=== PATIENT | female | born 1925 | race Caucasian/White ===

== ENCOUNTER 2017-02-05 08:02 | Inpatient (IN) | payer MEDICARE ==
--- NOTE | 2017-02-05 09:02 | CT ---
CT BRAIN WITHOUT CONTRAST: Date: 02/05/17 HISTORY: Emergency exam. Trauma. Fall last night. Altered mental status. Confusion. COMPARISON: None. FINDINGS: Moderate atrophy. There is a right temporal parenchymal hemorrhage with small subarachnoid component . No midline shift or mass effect. Mild microangiopathic changes. There are hypodensities of the external capsules, likely chronic in n ature. The calvarium is intact. Paranasal sinuses and mastoids are clear. There appears to be a possible soft tissue thickening or contusion of the left frontal superficial s oft tissues. IMPRESSION: Small right temporal intraparenchymal hemorrhage with small subarachnoid component. Please see CT cervical spine for further findings. CODE: CR. ER physician notified of findings at time of dictation. POS: [facility]
[2017-02-05] MEDS ORDERED: Lorazepam 2 MG/ML VIAL ONE (09:05)
[2017-02-05 09:07] LABS: ALT (SGPT) 23 U/L (8-55); AST (SGOT) 33 U/L (5-34); Alkaline Phosphatase 73 U/L (40-150); Anion Gap 10 mmol/L (10-20); BUN (Urea Nitrogen) 14 mg/dL (9.8-20.1); Bilirubin, Total 1.6 mg/dL (0.2-1.2); Calc. Creatinine Clearance 0 mL/min (70-130); Calcium 9.9 mg/dL (7.8-10.44); Carbon Dioxide 26 mmol/L (23-31); Chloride 107 mmol/L (98-107); Estimated GFR-MDRD 31; Globulin 2.5 g/dL (2.4-3.5); Protein, Total 6.5 g/dL (6.0-8.3)
[2017-02-05 09:09] LABS: PTT 37.3 SEC (22.9-36.1); Prothrombin Time 24.6 SEC (12.0-14.7)
[2017-02-05] MEDS ORDERED: Lidocaine 1% w/Epinephrine 1:200K 30 ML VIAL ONE (09:12)
--- NOTE | 2017-02-05 09:14 | CT ---
CT FACE WITHOUT CONTRAST: Date 02/05/17 HISTORY: Fall last night. COMPARISON: None. FINDINGS/IMPRESSION: There is small right temporal lobe, intraparenchymal, and subarachnoid hemorrhage. No mass effect. Face appears to be intact. There is a fracture of the right anterior arch of C1 anterior to the hughes sverse foramen. Dense calcifications of the transverse segment of the dens. The medial orbital purvis, lateral orbital purvis, orbital roofs, and orbital floors are intact. Mandibles are intact. Mandibular condyles are intact. The nasal bones are intact. The osseous nasal septum and vomer are intact. Zygoma and zygomatic arch are intact. Pterygoid plates are intact. There are calcifications of the carotid bulbs. Emergency room notified of findings via telephone at 0855 hours. CODE CR. POS: [facility]
[2017-02-05 09:24] LABS: #Basophils 0.1 thou/uL (0.0-0.2); #Eosinphils 0.1 thou/uL (0.0-0.7); #Monocytes 0.7 thou/uL (0.11-0.59); #Neutrophils 5.4 thou/uL (1.40-6.50); %Basophils 0.8 % (0.0-1.0); %Eosinophils 0.7 % (0.0-10.0); %Lymphocytes 13.8 % (21.0-51.0); %Monocytes 9.6 % (0.0-10.0); Hematocrit 38.7 % (36.0-47.0); Red Blood Cell (RBC) Count 3.94 mill/uL (4.20-5.40); White Blood Cell (WBC) Count 7.2 thou/uL (4.8-10.8)
--- NOTE | 2017-02-05 09:31 | CT ---
CT CERVICAL SPINE WITHOUT CONTRAST: Date: 02/05/17 HISTORY: Patient fell yesterday. Patient is altered and confused. COMPARISON: None. TECHNIQUE: Cervical spine CT is performed without contrast. Reformatted images are submitted for interpretation . FINDINGS: Visualized soft tissue neck structures are unremarkable. There is atherosclerosis of the carotid art eries. Upper mediastinum and lung apices are unremarkable. There are varying degrees of central canal stenosis and foraminal narrowing on the basis of degenera tive change. There is a nondisplaced fracture involving the anterior right C1 ring. Fracture lucency is also note d in the right lateral mass at C2. Possibility of a nondisplaced fracture is raised. Remaining cervi marek spine vertebral bodies are unremarkable for acute fracture. Remote mild compression fracture at T1 and minimal remote compression fracture at T2. IMPRESSION: 1. Anterior right C1 fracture. 2. Possible nondisplaced fracture involving the right lateral mass at C2. POS: [facility]
--- NOTE | 2017-02-05 10:05 | RAD ---
RADIOGRAPH LEFT SHOULDER THREE VIEWS: History: 89-year-old female with acute traumatic left shoulder pain after fall. FINDINGS: Diffuse osteopenia. No fracture or dislocation identified. No high grade degenerative changes. There is cardiomegaly and prominent interstitial markings diffusely, incompletely imaged. IMPRESSION: 1. Osteopenia. 2. No other abnormality of the left shoulder identified. 3. Cardiomegaly. POS: [facility]
[2017-02-05] MEDS ORDERED: Acetaminophen 1,000 MG in Premix Bag 1 BAG IVPB SCH (10:30)
[2017-02-05] MEDS ORDERED: Phytonadione 10 MG/ML AMP SLOW IVP SCH (10:45)
[2017-02-05] MEDS ORDERED: Ondansetron HCl/PF 4 MG/2 ML Vial IVP PRN (11:14)
[2017-02-05] MEDS ORDERED: Dextrose 50% Abboject 50 ML SYRINGE SLOW IVP PRN (11:14)
[2017-02-05] MEDS ORDERED: Dextrose 5% in Water 1,000 ML IV PRN (11:14)
[2017-02-05 11:24] LABS: Bilirubin Negative (Negative); Blood, Urine Negative (Negative); Glucose, Urine (Dipstick) Negative (Negative); Ketone, Urine Negative (Negative); Nitrite Negative (Negative); Protein, Urine (Dipstick) Negative (Neg-Trace)
[2017-02-05] MEDS ORDERED: Phytonadione 10 MG/ML AMP ONE (11:29)
[2017-02-05] MEDS ORDERED: Ondansetron HCl/PF 4 MG/2 ML Vial ONE (11:45)
--- NOTE | 2017-02-05 13:32 | HP-2 ---
DATE OF ADMISSION: 02/05/2017 LOCATION OF ADMISSION: [facility]. CHIEF COMPLAINT: Mechanical fall, falling to the head and injury to the neck. HISTORY OF PRESENT ILLNESS: This is an 89-year-old female that presents to the ER after a mechanical fall, falling and hitting her left side of her head. Per talking with patient's letty garcia, the patient has been staying with the patient's daughter. Daughter reports that the patient has episodes of sundowning that the patient was trying to argue with daughter about medications and annalisa ent got combative. At that time, she started to take a few steps back and fell and hit her head on some furniture per daughter. The patient denies any like loss of consciousness, dizziness, or sympt oms beforehand. Patient reports not being able to remember anything about the fall or before the fa ll. From the patient's daughter, daughter does report that the patient does have some underlying de mentia for about the last year. Says that it has been undiagnosed, but that the patient does have e pisodes of sundowning and is forgetful and is one of the reasons she is currently staying with the [facility]. The patient denies any chest pain or shortness of breath. Denies any abdominal pain. The patient does report just having a headache and having some pain in her neck. PAST MEDICAL HISTORY: Positive for CHF, atrial fibrillation, and hypothyroidism. PAST SURGICAL HISTORY: She has had some breast nodules removed long long time ago. DRUG ALLERGIES: PENICILLIN, unknown reaction. MEDICATIONS: 1. She takes Multaq 400 mg 2 times a day. 2. She takes metoprolol 25 mg tabs, but cuts them into half, so metoprolol 12.5 mg 2 times a daily. 3. Levothyroxine 75 mcg. 4. Then she takes warfarin 5 mg 1 time a day except for on Wednesdays she takes one and a half dose s. 5. Furosemide 20 mg. FAMILY HISTORY: Insignificant. SOCIAL HISTORY: Not currently smoker. No alcohol use and no illicit drug use. REVIEW OF SYSTEMS: All review of systems not listed in the HPI are, otherwise, negative at this anu e. PHYSICAL EXAMINATION: VITAL SIGNS: Blood pressure is 138/83, pulse of 96, respiratory rate is 18, and oxygen is 98% on ro om air and temperature is 98.0. GENERAL: The patient is alert and oriented. Patient does have some trauma to her head. Does have a laceration above her left eye, which is repaired with suture. She does have some bruising noted t o the left side of her head as well. The patient is flat with a C-collar in place currently. HEENT: Sclerae, no redness. PERRLA. NECK: Supple, no thyromegaly, no bruits noted. CARDIOVASCULAR: Regular rate and rhythm. Patient was moaning, possible murmur hard to discern at t his time. RESPIRATORY: Symmetric chest expansion and unlabored breathing. LUNGS: Clear to auscultation in all lobes. No wheezes or crackles noted. ABDOMEN: Soft, no masses or distention. She is mildly tender to palpation in the left upper and le ft lower quadrant area. No rebound tenderness noted. EXTREMITIES: She is able to move upper extremities and lower extremities bilaterally. Strength is normal, 5/5 in upper and lower extremities. No edema noted at this time. There is a bruising over her left shoulder. NEUROVASCULAR: No focal neuro deficit noted at this time. SKIN: Intact. She does have some multiple ecchymoses. Does have the laceration above her left eye . LABORATORY DATA: White blood cell count of 7.2, hemoglobin 12.7, hematocrit 38.7, MCV 98.1, platele t count is 116. PT was 24.6, INR was 2.1, aPTT was 37.3. Sodium was 140, potassium was 3.3, chlori de was 107, carbon dioxide was 26, BUN was 14, creatinine was 1.58, calcium was 9.9, total bilirubin was 1.6, glucose 93, AST 33, ALT 23, alkaline phosphatase 73, serum total protein 6.5, albumin is 4 .0. UA was negative. No abnormal color. IMAGING: A facial bone CT showed there is a small right temporal lobe intraparenchymal and subarach noid hemorrhage, no mass effect. Face appears to be intact. There is a fracture of the right anter ior arch of C1 anterior to the transverse foramen and then there was also calcification noted in the carotid bulbs. There were no other osseous abnormalities noted. Brain CT showed small right temporal intraparenchymal hemorrhage with small subarachnoid component. Cervical spine CT showed, 1. Anterior right C1 fracture. 2. Possible nondisplaced fracture, involving right lateral mass at C2. The shoulder x-ray of the left shoulder showed, 1. Osteopenia. 2. No other abnormality of the left shoulder identified. 3. Cardiomegaly. ASSESSMENT: 1. Status post mechanical fall. 2. Fracture of C1 and possible C2. 3. Subarachnoid hemorrhage with right temporal intraparenchymal hemorrhage with small subarachnoid component. 4. History of congestive heart failure. 5. History of atrial fibrillation. 6. Possible underlying dementia. PLAN: We will consult Neurosurgery for assessment of the C-spine fracture and brain bleed. We will continue to monitor patient. We will admit her to the [facility] for hourly neuro checks due to the brai n bleed. We will stop her warfarin for now, as she was on warfarin and was in the subtherapeutic ra nge. We will reverse the warfarin effect with vitamin K only at this time. We will keep patient in a C-collar and await records from Neurosurgery. We will consult PT and OT and case management. We will want to restart her home meds, as she has the CHF and atrial fibrillation and continue to quinten tor vital signs as needed. We will hold warfarin for now due to brain bleed. We will continue to monitor vital signs. We will recheck labs. Her potassium was a little low. We will replace potassium as needed. She possibly has an acute kidney injury. Creatinine is 1.58; do es not know her baseline for now. May need some fluids. Daughter is going to get records from prev ious hospitalizations at outside hospital and get a previous echocardiogram report from her previous [facility] and bring those to us. We will await records. Patient was seen and assessed with Dr. Mayo, plan of care was discussed with Dr. Mayo.
[2017-02-05 13:33] VITALS: BMI 22.6
[2017-02-05] MEDS: traMADol HCl 50 MG TAB PO PRN ×2 (16:03→22:25)
[2017-02-05] MEDS: Acetaminophen 500 MG TAB PO PRN (21:15)
--- NOTE | 2017-02-05 23:17 | CON ---
DATE OF CONSULTATION: 02/05/2017 HISTORY OF PRESENT ILLNESS: Ms. Briseno is an 89-year-old woman who is admitted to [facility] in [facility] ICU after sustaining a fall early this morning, struck her head on some furniture. She suffered a lateral mass fracture to the right at C1 that is minimally displaced and then has some minimal sub arachnoid hemorrhage in the right frontal and temporal lobes with minimal mass effect. It is rather small amount of blood. To my knowledge, she does not take any blood thinners. For this reason, Ne urosurgery was counseled at bedside. The patient is emotional and upset citing the trauma from this morning, but otherwise she is neurologically intact and stable. She is oriented to name, place, an d situation. She has good motion and strength in the upper and lower extremities bilaterally. She does not have any sensory disturbance that I can discern. Pupils are equally round and reactive to light. Extraocular movements are intact. Her speech is unimpaired. At this point I think it is mo st appropriate that management for her neck fracture is nonsurgical with only a [place] collar to we ar at all times, but also need to provide her a [place] collar to wear during shower times. Th en follow up with her a 2 week basis to monitor the progress of healing in terms of her subarachnoid hemorrhage. Again, nonsurgical management is recommended, just hold blood thinning medications to include NSAIDs and aspirin and we will repeat a CT scan of the head in roughly 3-4 weeks to ensure t hat this has resolved, at which point she can return to taking blood thinning medication, otherwise management will be minimal. Neurosurgery will continue to follow. Wellington Bustos PA-C, dictating for Rik Ibrahim M.D.
[2017-02-06 05:08] LABS: Anion Gap 9 mmol/L (10-20); BUN (Urea Nitrogen) 12 mg/dL (9.8-20.1); Calc. Creatinine Clearance 31 mL/min (70-130); Carbon Dioxide 25 mmol/L (23-31); Chloride 109 mmol/L (98-107); Estimated GFR-MDRD 45
[2017-02-06] MEDS ORDERED: Levothyroxine Sodium 75 MCG TAB PO SCH (07:30)
[2017-02-06] MEDS: Dronedarone HCl 400 MG TAB PO SCH ×2 (08:08→17:32)
[2017-02-06] MEDS: Furosemide 20 MG TAB PO SCH (08:09)
[2017-02-06] MEDS ORDERED: FLU VACC TS2017-18 (>65YR) 0.5 ML SYRINGE IM ONE ×2 (09:00→10:15)
[2017-02-06 09:01] LABS: Magnesium 1.9 mg/dL (1.6-2.6); Phosphorus 2.8 mg/dL (2.3-4.7)
[2017-02-06] MEDS: traMADol HCl 50 MG TAB PO PRN ×2 (09:56→21:49)
[2017-02-06] MEDS: Metoprolol Tartrate 25 MG TAB PO SCH (10:00)
[2017-02-06] MEDS: Levothyroxine Sodium 75 MCG TAB PO SCH (10:15)
[2017-02-06] MEDS ORDERED: Potassium Chloride 40 MEQ, Magnesium Sulfate 2 GM in Sodium Chloride 0.9% 250 ML 250 ML IVPB SCH (10:15)
--- NOTE | 2017-02-06 10:54 | CT ---
CT BRAIN WITHOUT CONTRAST: Comparison: 02-05-17 History: Subdural hemorrhage. Technique: Multiple contiguous axial images were obtained in a CT of the brain without contrast. Cor onal reformats were performed. FINDINGS: There is a stable small area of focal density in the right temporal lobe. No significant volume loss or effacement of the sulci are seen in this location. This may represent calcification. However, he morrhage cannot be entirely excluded. There are scattered hypodensities in the subcortical and periv entricular white matter, likely secondary to small vessel ischemic disease. There is no evidence of hydrocephalus. The calvarium and overlying soft tissues are unremarkable. The visualized paranasal sinuses and mast oid air cells are well aerated. IMPRESSION: Stable hyperdense lesion in the right temporal lobe may represent calcification or an atypical area of parenchymal hemorrhage. POS: [facility]
--- NOTE | 2017-02-06 12:28 | RAD ---
TWO VIEWS OF THE PELVIS: COMPARISON: None. HISTORY: Hip and sacroiliac pain. FINDINGS: AP and frogleg views of the pelvis show no evidence of acute fracture or dislocation. No degenerati ve change is seen in either hip. The sacroiliac joints are symmetric without significant fusion or sclerotic change. The pubic symphysis is unremarkable. IMPRESSION: Unremarkable exam. POS: [facility]
--- NOTE | 2017-02-06 13:00 | RAD ---
THREE VIEWS LUMBOSACRAL SPINE: Comparison: None. History: Back pain and sacroiliac pain. FINDINGS: Three views of the lumbosacral spine shows normal height and alignment of the vertebral bodies witho ut fracture or subluxation. There is slight narrowing of the L4-5 intervertebral discs. Small osteop hytes are seen throughout the lumbar spine. Mild sclerotic curvature of the spine is seen. IMPRESSION: Mild degenerative changes of the lumbar spine without acute osseous abnormality. POS: [facility]
--- NOTE | 2017-02-06 16:47 | PRG ---
DATE OF EXAMINATION: 02/06/2017 SUBJECTIVE: Ms. Briseno is awake and slightly confused at baseline. She is very interactive, move s all extremities and follows commands. Aliyah coma scale remains stable at E4 M6 V4. Daughter re ported that the patient was slightly agitated overnight and may have been even more confused than isamar pathak. At the time of this visit, the patient is participating with physical therapy. She was ambulating u sing a walker with assistance. Repeat noncontrast head CT scan reveals stable small right temporal intraparenchymal hemorrhage. No mass effect is noted. OBJECTIVE: VITAL SIGNS: Currently includes, blood pressure 121/80, heart rate is 89, respiratory rate is 18, m aximum temperature in the last 24 hours is 97.6 degrees Fahrenheit, oxygen saturation is 98% on room air. HEENT EXAM: Reveals normocephalic and atraumatic. Pupils are equal, round, and reactive to light. HEART: Reveals regular rate and rhythm, no murmurs or gallops auscultated. LUNGS: Clear to auscultation bilaterally. Breathing is regular and unlabored. ABDOMEN: Soft, nontender and nondistended. Bowel sounds in all four quadrants appear normoactive. NEUROLOGIC EXAMINATION: Reveals no focal deficits present. EXTREMITIES: Reveals 2+ radial and pedal pulses bilaterally. The patient has no ankle edema presen t. PERTINENT LABORATORY FINDINGS: Includes metabolic profile: Sodium 140, potassium is 3.4, chloride is 109, bicarbonate is 25, BUN 12, creatinine is 1.13, glucose 77, magnesium 1.9, and phosphorus is 2.8. IMPRESSION: 1. Post-admission day #1, status post ground level fall. 2. Stable acute intracranial hemorrhage. 3. Acute hypokalemia. 4. Acute hypophosphatemia. 5. Acute hypomagnesemia. PLAN: 1. Correct abnormal electrolytes. 2. Continue with physical and occupational therapy. 3. We will ask PM and R to evaluate the patient and consideration for inpatient rehabilitation. 4. The patient remains stable and will be transferred to the general surgical floor.
[2017-02-06] MEDS: Acetaminophen 500 MG TAB PO PRN (21:49)
[2017-02-07] MEDS: Levothyroxine Sodium 75 MCG TAB PO SCH ×2 (05:24→05:33)
[2017-02-07] MEDS: Metoprolol Tartrate 25 MG TAB PO SCH (08:12)
[2017-02-07] MEDS: Dronedarone HCl 400 MG TAB PO SCH (08:12)
[2017-02-07] MEDS: Furosemide 20 MG TAB PO SCH (08:13)
[2017-02-07] MEDS: traMADol HCl 50 MG TAB PO PRN (09:22)
[2017-02-07] MEDS: Acetaminophen 500 MG TAB PO PRN (14:14)
[2017-02-07 15:15] VITALS: BP 108/72; TEMP 98.1
--- NOTE | 2017-02-07 21:26 | DIS ---
DATE OF ADMISSION: 02/05/2017 DATE OF DISCHARGE: 02/07/2017 ADMISSION DIAGNOSES: 1. Status post fall. 2. Subarachnoid hemorrhage while on anticoagulation. 3. Acute traumatic pain. 4. C1 and C2 fracture. 5. History of congestive heart failure. 6. History of atrial fibrillation. 7. Dementia. DISCHARGE DIAGNOSES: 1. Status post fall. 2. Subarachnoid hemorrhage while on anticoagulation. 3. Acute traumatic pain. 4. C1 and C2 fracture. 5. History of congestive heart failure. 6. History of atrial fibrillation. 7. Dementia. CONSULTANTS: Dr. Ibrahim, Neurosurgery. HOSPITAL COURSE: Ms. Storm Briseno is an 89-year-old female who presented to [facility] status post fall. The patient had some confusion and was evaluated in the emergency room and found to have the above injuries. The patient remained neurologically stable. She was evaluated by physical the rapy and occupational therapy. Her pain was controlled via p.o. analgesics. Her CT brain remained stable the day after her injury. She was deemed medically stable for discharge to inpatient rehabil itation on 02/07/2017. Of note, the patient's power of tax attorney did request the patient to be a do not resuscitate. She does not currently have any formal paperwork and did request more information about that just prior to the patient's discharge. Inpatient rehabilitation is aware of this request and will help facilitate the process. DISCHARGE DISPOSITION: Inpatient rehabilitation. DISCHARGE CONDITION: Fair. PHYSICAL EXAMINATION: VITAL SIGNS: Temperature 97.9, pulse 115, respirations 20, O2 sat 92%-97% on room air to 2 liters, blood pressure 114/80. GENERAL: Well-developed, well-nourished female in no acute distress, resting in bed. HEAD: Normocephalic. NECK: C-collar is in place. PULMONARY: Normal work of breathing. Symmetric rise. CARDIOVASCULAR: Tachycardic. Irregularly irregular. GASTROINTESTINAL: Abdomen is soft, nontender, nondistended. MUSCULOSKELETAL: Moves all extremities x4. NEUROLOGIC: No focal deficit noted. DISCHARGE INSTRUCTIONS: Discharge instructions were provided to the accepting facility and the annalisa ent's family. She is to remain in a C-collar at all times. She may use a [place] collar for s howering. She is to continue to work with physical therapy and occupational therapy at the [facility]. The patient may continue a general diet. She should have Ensure supplem ent t.i.d. FOLLOWUP APPOINTMENTS: The patient should follow up with primary care provider torres. She should a lso follow up with Cardiology once she is discharged from inpatient rehabilitation. It is recommend ation of the trauma team to strongly consider aspirin instead of full anticoagulation given the annalisa ent's possible underlying dementia and potential for repeat falls in the future. She should follow up with Neurosurgery. She should not have any anticoagulation or aspirin therapy until cleared by t he neurosurgical team. She does not need to follow up with Trauma services at this time, but may ca ll our office with any questions. Discharge medications as documented in electronic medical record, list of which was provided to the accepting facility. This is merely a summary of the patient's ho spitalization. For more in depth information, please see her medical record in its entirety.
== END 2017-02-07 15:30 | DRG 551 ==
LOC: ERS 08:02 → CCU 10:02 → SURG A 02-06 15:01
PROVIDERS: ADMIT Surgery; ATTEND Surgery
DX: S12.000A Unspecified displaced fracture of first cervical vertebra, initial encounter for closed fracture (principal); S06.6X0A Traumatic subarachnoid hemorrhage without loss of consciousness, initial encounter; F03.90 Unspecified dementia, unspecified severity, without behavioral disturbance, psychotic disturbance, mood disturbance, and anxiety; E83.42 Hypomagnesemia; E83.39 Other disorders of phosphorus metabolism; S12.100A Unspecified displaced fracture of second cervical vertebra, initial encounter for closed fracture; E87.6 Hypokalemia; Z66 Do not resuscitate; Z88.0 Allergy status to penicillin; W10.9XXA Fall (on) (from) unspecified stairs and steps, initial encounter
CPT/HCPCS: 12002; 36415; 51702; 70450; 70486; 72100; 72125; 72190; 80048; 80053; 81003; 83735; 84100; 85025; 85610; 85730; 86850; 86900; 86901; 87086; 90471; 90682; 90732; 93005; 96361; 96374; 96375; 99292; G0008; G0009; G8978-GP-CM; G8979-GP-CK; G8987-GO-CK; G8988-GO-CI; G9168-GN-CL; G9169-GN-CK; J0131; J2060; J2405; J3430; J3475; J3480; J7050; Q2036

== ENCOUNTER 2017-02-26 13:02 | Outpatient (CLI) | payer MEDICARE ==
--- NOTE | 2017-02-26 15:15 | RAD ---
CERVICAL SPINE THREE VIEWS: History: 89-year-old female for follow up cervical fracture following a fall several weeks ago. Comparison: Cervical spine CT 02-05-17 which revealed an essentially nondisplaced vertical fracture through the right C1 ring as well as vertical nondisplaced fracture of the right C2 [id number] mass. The right lat eral C1 ring is somewhat displaced laterally relative to the right C2 facet consistent with known ri ght C1 ring fracture. There is a linear lucency through the right lateral mass or C2 probably corres ponding to the previously noted C2 fracture. Significant spondylosis noted of the remainder of the c ervical spine with multilevel disc osteophytosis and facet arthrosis. There is significant bony jassi neralization. IMPRESSION: The lateral mass or C1 on the right side is somewhat laterally displaced relative to the lateral mas s of C2, evidence for C1 ring fracture. Oblique lucency through the right C2 lateral mass probably r epresenting the previously noted C2 fracture. Remainder of the cervical spine shows no acute fractur e or significant malalignment. POS: [facility]
== END 2017-02-26 13:03 | disposition home or self-care (01) ==
LOC: TBSIIMAG 13:02
PROVIDERS: ATTEND Neurological Surgery
DX: S12.9XXD Fracture of neck, unspecified, subsequent encounter (principal)
CPT/HCPCS: 72040

== ENCOUNTER 2017-03-10 12:30 | Inpatient (IN) | payer MEDICARE ==
[2017-03-10 13:35] LABS: Bilirubin Negative (Negative); Blood, Urine Negative (Negative); Glucose, Urine (Dipstick) Negative (Negative); Ketone, Urine Negative (Negative); Nitrite Negative (Negative); Protein, Urine (Dipstick) Trace mg/dL (Neg-Trace)
[2017-03-10 13:36] LABS: Bacteria/HPF None Seen HPF (None Seen); Hyaline Casts/LPF 4-6 HYALINE CAST LPF (0-3 Hyaline); Squamous Epithelial 0-3 HPF (0-3); WBC/HPF 0-3 HPF (0-3)
[2017-03-10] MEDS ORDERED: Lorazepam 2 MG/ML VIAL ONE (13:37)
[2017-03-10 14:28] LABS: Prothrombin Time 13.6 SEC (12.0-14.7)
[2017-03-10 14:29] LABS: PTT 17.6 SEC (22.9-36.1)
[2017-03-10 14:35] LABS: Band 1 % (5-11); Hematocrit 48.5 % (36.0-47.0); Neutrophil 81 % (42-75); Red Blood Cell (RBC) Count 4.88 mill/uL (4.20-5.40); White Blood Cell (WBC) Count 7.3 thou/uL (4.8-10.8)
[2017-03-10 14:54] LABS: Troponin I Less than 0.010 ng/mL (< 0.028)
[2017-03-10 15:20] LABS: Anion Gap 14 mmol/L (10-20); BUN (Urea Nitrogen) 22 mg/dL (9.8-20.1); Calc. Creatinine Clearance 0 mL/min (70-130); Carbon Dioxide 23 mmol/L (23-31); Chloride 109 mmol/L (98-107); Estimated GFR-MDRD 26
--- NOTE | 2017-03-10 15:27 | CT ---
BRAIN CT WITHOUT IV CONTRAST: History: 89-year-old female with altered mental status. Comparison: 02-06-17 FINDINGS: There is atrophy and chronic white matter ischemic change. No focal mass or midline shift. No intra or extraaxial hemorrhage. Sinuses and mastoids are clear. IMPRESSION: No acute intracranial process. No mass or bleed. Stable from prior study. POS: [facility]
--- NOTE | 2017-03-10 15:31 | CT ---
CERVICAL SPINE CT SCAN WITHOUT IV CONTRAST: History: 89-year-old female with altered mental status. FINDINGS: There is again noted to be vertically oriented essentially nondisplaced fracture through the right C 1 ring and lateral mass, stable from 10-17. Generalized spondylosis. IMPRESSION: Stable nondisplaced vertical fracture through the right C1 ring and lateral mass. Generalized spondy losis. No evidence for acute fracture or dislocation. POS: [facility]
[2017-03-10] MEDS ORDERED: Ondansetron ODT 4 MG TAB SL PRN (17:55)
[2017-03-10] MEDS ORDERED: Ondansetron HCl/PF 4 MG/2 ML Vial IVP PRN ×2 (17:55→18:21)
[2017-03-10] MEDS ORDERED: Acetaminophen 325 MG TAB PO PRN ×2 (17:55→18:21)
[2017-03-10] MEDS ORDERED: Bisacodyl 5 MG TAB PO PRN (18:21)
[2017-03-10] MEDS ORDERED: Acetaminophen 650 MG Suppository PR PRN (18:21)
[2017-03-10] MEDS ORDERED: Sodium Chloride 0.9% 500 ML IV SCH (18:21)
[2017-03-10] MEDS ORDERED: traMADol HCl 50 MG TAB PO PRN (18:21)
[2017-03-10] MEDS ORDERED: Bisacodyl 10 MG SUPP PR PRN (18:21)
[2017-03-10] MEDS ORDERED: Ondansetron ODT 4 MG TAB PO PRN (18:21)
[2017-03-10] MEDS ORDERED: Haloperidol Lactate 5 MG/ML VIAL IM PRN (18:21)
[2017-03-10] MEDS: Dronedarone HCl 400 MG TAB PO SCH (20:40)
[2017-03-10] MEDS: Sodium Chloride 0.9% 1,000 ML IV SCH (22:23)
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
[2017-03-11 05:53] LABS: #Eosinphils 0.1 thou/uL (0.0-0.7); #Lymphocytes 1.1 thou/uL (1.20-3.40); #Monocytes 0.5 thou/uL (0.11-0.59); #Neutrophils 3.3 thou/uL (1.40-6.50); %Basophils 0.2 % (0.0-1.0); %Eosinophils 1.8 % (0.0-10.0); %Lymphocytes 21.5 % (21.0-51.0); %Monocytes 9.9 % (0.0-10.0); Hematocrit 37.8 % (36.0-47.0); Mean Platelet Volume 7.5 fL (7.4-10.4); Red Blood Cell (RBC) Count 3.81 mill/uL (4.20-5.40); White Blood Cell (WBC) Count 4.9 thou/uL (4.8-10.8)
[2017-03-11 06:36] LABS: ALT (SGPT) 7 U/L (8-55); AST (SGOT) 19 U/L (5-34); Alkaline Phosphatase 86 U/L (40-150); Anion Gap 15 mmol/L (10-20); BUN (Urea Nitrogen) 18 mg/dL (9.8-20.1); Bilirubin, Total 0.9 mg/dL (0.2-1.2); Calc. Creatinine Clearance 24 mL/min (70-130); Calcium 9.3 mg/dL (7.8-10.44); Carbon Dioxide 16 mmol/L (23-31); Chloride 114 mmol/L (98-107); Estimated GFR-MDRD 39; Globulin 2.1 g/dL (2.4-3.5); Protein, Total 5.1 g/dL (6.0-8.3)
--- NOTE | 2017-03-11 08:16 | PDOC.FM ---
- Subjective Subjective: Pt was resting in bed. Pt is relaxed and calm at this time. Pt is only oriented to person. She gets very confused and worked up if talking with her for long. Pt denies any pain. But states having pain when touched. - Objective MAR Reviewed: Yes Vital Signs & Weight: Vital Signs (12 hours) Temp Pulse Resp BP Pulse Ox 03/11/17 04:00 97.6 F 79 18 104/55 L 97 Weight Weight 50.802 kg Result Diagrams: 03/11/17 05:07 03/11/17 05:07 Radiology Reviewed by me: Yes Radiology: Brain CT: no bleed, no mass, no acute prosess Cervical spine CT: stable fx of C1 process and lateral mass. General spondylosis. <Rio Jordan - Last Filed: 03/11/17 08:14> - Objective Vital Signs & Weight: Vital Signs (12 hours) Temp Pulse Resp BP BP BP Pulse Ox 03/11/17 12:04 98.9 F 100 16 98/53 L 96 03/11/17 09:35 97.4 F L 85 16 115/68 97 03/11/17 04:00 97.6 F 79 18 104/55 L 97 Weight Weight 50.802 kg Result Diagrams: 03/11/17 05:07 03/11/17 05:07 <Jovani Elena - Last Filed: 03/11/17 12:20> Phys Exam - Physical Examination Constitutional: NAD Respiratory: no wheezing, no rales, no rhonchi, clear to auscultation bilateral Cardiovascular: no significant murmur, no rub Irregularly irregular, Hr around 80 Gastrointestinal: soft Mild tender to palpation Reports pain when being touched in legs Neurological: non-focal, moves all 4 limbs Deviation from normal: Confused, Oriented only to person Skin: no rash <Rio Jordan - Last Filed: 03/11/17 08:14> Dx/Plan (1) Atrial fibrillation with RVR Code(s): I48.91 - UNSPECIFIED ATRIAL FIBRILLATION Status: Acute Plan: Pt was not taking medications at home. -Restarted on Multaq -Given one 5 mg push diltiazem yesterday. Hr stable. Will bump up above 120 at times -Will continue to monitor. -Asymptomatic at this time. (2) Dementia Code(s): F03.90 - UNSPECIFIED DEMENTIA WITHOUT BEHAVIORAL DISTURBANCE Status: Acute Qualifiers: Dementia type: Alzheimer's disease Alzheimer's disease onset: late-onset Dementia behavioral disturbance: with behavioral disturbance Qualified Code(s) : G30.1 - Alzheimer's disease with late onset; F02.81 - Dementia in other diseases classified elsewhere with behavioral disturbance; F02.81 - Dementia in other diseases classified elsewhere with behavioral disturbance; F02.81 - Dementia in other diseases classified elsewhere with behavioral disturbance Plan: End stage dementia -Pt has not been eating. Has been aggressive with daughter. Possible episode of delirium at home -Daughter brought pt in as she could no longer handle her Case management/palliative/hospice consulted to help with goals of care and to help with placement. Will await recommendations -Pt likely towards end of life. Has been detiorating quickly per daughter the last month. Discussed this in depth with daughter yesterday. (3) JANEL (acute kidney injury) Code(s): N17.9 - ACUTE KIDNEY FAILURE, UNSPECIFIED Status: Resolved Plan: Resolved at this time -IV fluids -Cr at baseline (4) Heart failure Code(s): I50.9 - HEART FAILURE, UNSPECIFIED Status: Acute Plan: -Holding metoprolol for now as bp low. -Will continue to monitor -No signs of fluid overflow at this time (5) Thrombocytopenia Code(s): D69.6 - THROMBOCYTOPENIA, UNSPECIFIED Status: Acute Plan: Plt count increased from yesterday. -Low Plt count likely due to malnutrition from not eating for the last few weeks. (6) C1 cervical fracture Code(s): S12.000A - UNSP DISP FX OF FIRST CERVICAL VERTEBRA, INIT FOR CLOS FX Status: Acute Plan: -Fx is stable. Is wearing Neck collar currently. -No concern for neuro defecit at this time. <Rio Jordan - Last Filed: 03/11/17 08:14> Attending Addendum - Attending Addendum I personally evaluated the patient and discussed the management with Dr. Jordan. I agree with the History, Examination, Assessment and Plan documented above with any addition or exceptions noted below. Patient mentation somewhat improved, though she continues to have intermittent agitation. It seems as though it is unsafe for her to return home in the current state, more unsafe for her caregiver as patient becomes violent at times. Her workup for AMS has overall been normal except for the Afib with RVR. This was likely a result of her not taking Multaq consistently. We will discuss with patient's outpatient space studies faculty member the appropriateness of this medication and whether she has any known heart failure that would contra-indicate this medication. She is currently rate controlled. We are awaiting consult from Palliative care regarding goals of care and possible assistance with placement. <Jovani Elena - Last Filed: 03/11/17 12:20>
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
[2017-03-11] MEDS: Dronedarone HCl 400 MG TAB PO SCH ×2 (09:37→20:37)
[2017-03-11] MEDS: Levothyroxine Sodium 75 MCG TAB PO SCH (09:37)
[2017-03-11] MEDS: Sodium Chloride 0.9% 1,000 ML IV SCH (12:06)
--- NOTE | 2017-03-12 06:54 | PDOC.FM ---
- Subjective Subjective: Pt confused this morning. Is resting at this time. Oriented x1. Sitter in the room denies any acute events overnight. States pt would have episodes of being irritable and wanting to remove neck brace. No other complaints at this time. - Objective MAR Reviewed: Yes Vital Signs & Weight: Vital Signs (12 hours) Temp Pulse Resp BP Pulse Ox 03/12/17 04:00 97.5 F L 111 H 18 105/56 L 97 03/12/17 00:00 98.0 F 115 H 18 114/65 97 03/11/17 19:50 98.3 F 93 16 114/65 95 Weight Admit Weight 50.802 kg Weight 50.848 kg I&O: 03/10/17 03/11/17 03/12/17 06:59 06:59 06:59 Intake Total 410 Output Total 1150 Balance -740 Result Diagrams: 03/11/17 05:07 03/11/17 05:07 Radiology: Last had Heart Echo with outside claim trainee in 2016 <Rio Jordan - Last Filed: 03/12/17 08:51> - Objective Vital Signs & Weight: Vital Signs (12 hours) Temp Pulse Resp BP BP Pulse Ox 03/12/17 09:07 97.7 F 106 H 16 113/68 96 03/12/17 09:06 97.7 F 106 H 16 96 03/12/17 04:00 97.5 F L 111 H 18 105/56 L 97 03/12/17 00:00 98.0 F 115 H 18 114/65 97 Weight Admit Weight 50.802 kg Weight 50.848 kg I&O: 03/11/17 03/12/17 03/13/17 06:59 06:59 06:59 Intake Total 410 Output Total 1150 Balance -740 Result Diagrams: 03/11/17 05:07 03/11/17 05:07 <Jovani Elena - Last Filed: 03/12/17 11:38> Phys Exam - Physical Examination HEENT: moist MMs, oral pharynx no lesions Neck: no nodes, no JVD, supple, full ROM Respiratory: no wheezing, no rales, no rhonchi, clear to auscultation bilateral Cardiovascular: no significant murmur, no rub, irregular Gastrointestinal: soft mild tender to palpation She reports pain just touching any extremity Neurological: non-focal, normal sensation Lymphatic: no nodes Deviation from normal: Easily agitated. Oriented x1 Skin: no rash <Rio Jordan - Last Filed: 03/12/17 08:51> Dx/Plan (1) Atrial fibrillation with RVR Code(s): I48.91 - UNSPECIFIED ATRIAL FIBRILLATION Status: Acute Plan: Pt was not taking medications at home. -HR a little elevated this morning. May consider another IV push of dilt. Will monitor after getting morning multaq -Restarted on Multaq -Given one 5 mg push diltiazem upon admission. HR will bump up above 120 at times -Will continue to monitor. -Asymptomatic at this time. (2) Dementia Code(s): F03.90 - UNSPECIFIED DEMENTIA WITHOUT BEHAVIORAL DISTURBANCE Status: Acute Qualifiers: Dementia type: Alzheimer's disease Alzheimer's disease onset: late-onset Dementia behavioral disturbance: with behavioral disturbance Qualified Code(s) : G30.1 - Alzheimer's disease with late onset; F02.81 - Dementia in other diseases classified elsewhere with behavioral disturbance; F02.81 - Dementia in other diseases classified elsewhere with behavioral disturbance; F02.81 - Dementia in other diseases classified elsewhere with behavioral disturbance Plan: End stage dementia -Pt has not been eating. Has been aggressive with daughter. Possible episode of delirium at home -Daughter brought pt in as she could no longer handle her Case management/palliative/hospice consulted to help with goals of care and to help with placement. Will await recommendations. Case management has begun submitting for retirement placement. -Pt likely towards end of life. Has been detiorating quickly per daughter the last month. Discussed this in depth with daughter upon admission. (3) JANEL (acute kidney injury) Code(s): N17.9 - ACUTE KIDNEY FAILURE, UNSPECIFIED Status: Resolved Plan: Cr at baseline. Will continue to monitor as needed. Want to agitate her as little as possible. -IV fluids (4) Heart failure Code(s): I50.9 - HEART FAILURE, UNSPECIFIED Status: Acute Plan: -Holding metoprolol for now as bp low. -Will continue to monitor -No signs of fluid overflow at this time -Last echo per outside claim trainee was 2015 (5) Thrombocytopenia Code(s): D69.6 - THROMBOCYTOPENIA, UNSPECIFIED Status: Acute Plan: Plt count increased from yesterday. -Low Plt count likely due to malnutrition from not eating for the last few weeks. -Will continue to monitor as needed (6) C1 cervical fracture Code(s): S12.000A - UNSP DISP FX OF FIRST CERVICAL VERTEBRA, INIT FOR CLOS FX Status: Acute Plan: -Fx is stable. Is wearing Neck collar currently. -No concern for neuro defecit at this time. <Rio Jordan - Last Filed: 03/12/17 08:51> Attending Addendum - Attending Addendum I personally evaluated the patient and discussed the management with Dr. Jordan. I agree with the History, Examination, Assessment and Plan documented above with any addition or exceptions noted below. Patient mentation stable, awaiting case management and palliative discussion regarding disposition. In regards to Afib, continues to be RVR despite Multaq use. Discussed with outpatient cardiology who says no evidence of heart failure at last Echo 1 year ago. Will add PO Diltiazem to obtain better rate control, though will need to monitor BP to ensure not dropping too low. <Jovani Elena - Last Filed: 03/12/17 11:38>
[2017-03-12] MEDS: Dronedarone HCl 400 MG TAB PO SCH ×2 (09:11→21:21)
[2017-03-12] MEDS: Levothyroxine Sodium 75 MCG TAB PO SCH (09:11)
[2017-03-13 06:17] VITALS: BMI 20.2
--- NOTE | 2017-03-13 07:44 | PDOC.FM ---
- Subjective Subjective: Pt resting in the room. Comfortably confused this morning. Oriented to person. No complaints of pain at this time. No acute events overnight reported by sitter. - Objective MAR Reviewed: Yes Vital Signs & Weight: Vital Signs (12 hours) Temp Pulse Resp BP Pulse Ox 03/13/17 04:00 97.9 F 85 20 124/72 98 03/13/17 00:00 97.9 F 77 18 106/67 95 03/12/17 20:00 97.9 F 89 20 91/65 98 Weight Admit Weight 50.802 kg Weight 51.755 kg I&O: 03/12/17 03/13/17 03/14/17 06:59 06:59 06:59 Intake Total 410 880 Output Total 1150 900 Balance -740 -20 Result Diagrams: 03/11/17 05:07 03/11/17 05:07 Radiology Reviewed by me: Yes (No new imaging to be reviewed) <Rio Jordan - Last Filed: 03/13/17 07:41> - Objective Vital Signs & Weight: Vital Signs (12 hours) Temp Pulse Resp BP Pulse Ox 03/13/17 14:00 97.8 F 82 18 109/56 L 92 L 03/13/17 08:00 97.9 F 75 18 103/51 L 92 L 03/13/17 04:00 97.9 F 85 20 124/72 98 Weight Admit Weight 50.802 kg Weight 51.755 kg I&O: 03/12/17 03/13/17 03/14/17 06:59 06:59 06:59 Intake Total 410 880 720 Output Total 1150 900 Balance -740 -20 720 Result Diagrams: 03/11/17 05:07 03/11/17 05:07 <Jovani Elena - Last Filed: 03/13/17 15:14> Phys Exam - Physical Examination HEENT: moist MMs Neck: no nodes, no JVD, supple c-colloar on, no problems at this time Respiratory: no wheezing, no rales, no rhonchi, clear to auscultation bilateral Cardiovascular: no significant murmur, no rub, irregular Gastrointestinal: soft, non-tender, no distention, positive bowel sounds Musculoskeletal: no edema, pulses present Neurological: non-focal Deviation from normal: Sleeping, Oriented x1 to person Skin: no rash <Rio Jordan - Last Filed: 03/13/17 07:41> Dx/Plan (1) Atrial fibrillation with RVR Code(s): I48.91 - UNSPECIFIED ATRIAL FIBRILLATION Status: Acute Plan: Pt was not taking medications at home. -HR a little elevated this morning. Will monitor after getting morning multaq. Started on Diltiazem QID. HR much improved. Likely will hold metoprolol and continue diltiazem outpt -Restarted on Multaq -Given one 5 mg push diltiazem upon admission. HR will bump up above 120 at times -Will continue to monitor. -Asymptomatic at this time. (2) Dementia Code(s): F03.90 - UNSPECIFIED DEMENTIA WITHOUT BEHAVIORAL DISTURBANCE Status: Acute QualifierTitle: Dementia type: Alzheimer's disease Alzheimer's disease onset: late-onset Dementia behavioral disturbance: with behavioral disturbance Qualified Code(s): G30.1 - Alzheimer's disease with late onset; F02.81 - Dementia in other diseases classified elsewhere with behavioral disturbance; F02.81 - Dementia in other diseases classified elsewhere with behavioral disturbance; F02.81 - Dementia in other diseases classified elsewhere with behavioral disturbance Plan: End stage dementia -Pt has not been eating. Has been aggressive with daughter. Possible episode of delirium at home -Daughter brought pt in as she could no longer handle her Case management/palliative/hospice consulted to help with goals of care and to help with placement. Will await recommendations. -Pt has alf placement in locked down dementia unit. Ready for Discharge (3) JANEL (acute kidney injury) Code(s): N17.9 - ACUTE KIDNEY FAILURE, UNSPECIFIED Status: Resolved Plan: Cr at baseline. Will continue to monitor as needed. Want to agitate her as little as possible. 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 -Low Plt count likely due to malnutrition from not eating for the last few weeks. -Will continue to monitor as needed (6) C1 cervical fracture Code(s): S12.000A - UNSP DISP FX OF FIRST CERVICAL VERTEBRA, INIT FOR CLOS FX Status: Acute Plan: -Fx is stable. Is wearing Neck collar currently. -No concern for neuro defecit at this time. <Rio Jordan - Last Filed: 03/13/17 07:41> Attending Addendum - Attending Addendum I personally evaluated the patient and discussed the management with Dr. Jordan. I agree with the History, Examination, Assessment and Plan documented above with any addition or exceptions noted below. Patient doing well today. Mentation is baseline and HR improved significantly with Diltiazem. Has been accepted for NH placement and she is stable to be discharged there today. <Jovani Elena - Last Filed: 03/13/17 15:14>
[2017-03-13 14:50] VITALS: BP 109/56; TEMP 97.8
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
== END 2017-03-13 14:30 | DRG 683 ==
LOC: ERS 12:30 → 2NO 15:37
PROVIDERS: ADMIT Internal Medicine; ATTEND Internal Medicine
DX: N17.9 Acute kidney failure, unspecified (principal); F05 Delirium due to known physiological condition; E46 Unspecified protein-calorie malnutrition; I11.0 Hypertensive heart disease with heart failure; D69.6 Thrombocytopenia, unspecified; G30.1 Alzheimer's disease with late onset; E86.0 Dehydration; I48.91 Unspecified atrial fibrillation; I95.2 Hypotension due to drugs; Z68.1 Body mass index [BMI] 19.9 or less, adult; F02.81 Dementia in other diseases classified elsewhere, unspecified severity, with behavioral disturbance; Z51.5 Encounter for palliative care; Z66 Do not resuscitate; E03.9 Hypothyroidism, unspecified; Z91.14 Patient's other noncompliance with medication regimen; T42.4X5A Adverse effect of benzodiazepines, initial encounter; S12.000D Unspecified displaced fracture of first cervical vertebra, subsequent encounter for fracture with routine healing; W18.30XD Fall on same level, unspecified, subsequent encounter
CPT/HCPCS: 36415; 70450; 72125; 80048; 80053; 81003; 81015; 82553; 83880; 84484; 85025; 85610; 85730; 93005; 96360; 96372; A4216; G8996-GN-CH; G8997-GN-CH; J2060

== ENCOUNTER 2017-04-09 12:28 | Outpatient (CLI) | payer MEDICARE ==
--- NOTE | 2017-04-09 13:59 | CT ---
BRAIN CT WITHOUT IV CONTRAST: History: 89-year-old female with follow up closed head injury and cervical fracture. Comparison: 03-10-17 FINDINGS: There is atrophy and chronic white matter ischemic change. No focal mass or midline shift. No intra o r extraaxial hemorrhage. IMPRESSION: No acute intracranial process. No mass or bleed. Stable from prior study. POS: [facility]
--- NOTE | 2017-04-09 14:36 | CT ---
CT CERVICAL SPINE: Technique: Multiple axial tomograms were obtained through the cervical spine with multiplanar reconst ructions. History: Closed head injury. Falls. Follow up cervical spine fracture. Comparison: 03-10-17 which again demonstrated a fracture involving the anterior ring of C1 on the rig ht. This was initially seen on CT of 02-05-17. FINDINGS: In the sagittal plane the cervical vertebrae continue to maintain normal height and alignment. Degene rative changes are again noted with loss of disc space at C3-4, C4-5, and C5-6. Anterior osteophytes and posterior spondolytic changes at these levels again noted. The fracture involving the anterior ring of C1 to the right of midline extend into the lateral mass o f C1 is again noted. Fracture line remains readily visible although there is some mild callus formati on seen on today's exam. No change in alignment when compared to the prior study. IMPRESSION: 1. C1 fracture again noted. Fracture remains readily visible although there is some early callus form ation. No change in alignment. 2. Degenerative changes of the cervical spine again noted. No significant change of the cervical spin e from exam of 03-10-17. POS: [facility]
== END 2017-04-09 12:29 | disposition home or self-care (01) ==
LOC: TBSIIMAG 12:28
PROVIDERS: ATTEND Neurological Surgery
DX: S06.890A Other specified intracranial injury without loss of consciousness, initial encounter (principal); S12.9XXA Fracture of neck, unspecified, initial encounter; M47.812 Spondylosis without myelopathy or radiculopathy, cervical region; S12.000D Unspecified displaced fracture of first cervical vertebra, subsequent encounter for fracture with routine healing
CPT/HCPCS: 70450; 72125

== ENCOUNTER 2017-04-10 19:06 | Emergency (ER) | payer MEDICARE ==
[2017-04-10 20:19] LABS: Bilirubin Negative (Negative); Blood, Urine Negative (Negative); Glucose, Urine (Dipstick) Negative (Negative); Ketone, Urine Negative (Negative); Nitrite Negative (Negative); Protein, Urine (Dipstick) Negative (Neg-Trace); Urobilinogen 0.2 mg/dL (0.2-1.0)
[2017-04-10 20:21] LABS: Bacteria/HPF None Seen HPF (None Seen); Hyaline Casts/LPF 0-3 HYALINE CAST LPF (0-3 Hyaline); RBC/HPF None Seen HPF (0-3); Squamous Epithelial 0-3 HPF (0-3); WBC/HPF 0-3 HPF (0-3)
--- NOTE | 2017-04-10 20:23 | RAD ---
AP VIEW CHEST 04/10/17 HISTORY: Altered mental status. History of dementia. AP view chest is obtained. Mild cardiomegaly is seen. Ectasia of the aorta is seen. The lungs are wel l aerated. No evidence of active intrathoracic disease is seen. No evidence of effusions, pneumonia or pneumothorax seen. IMPRESSION: Cardiomegaly, otherwise unremarkable AP view chest. POS: [facility]
[2017-04-10 21:27] LABS: #Eosinphils 0.1 thou/uL (0.0-0.7); #Lymphocytes 1.1 thou/uL (1.20-3.40); #Monocytes 0.6 thou/uL (0.11-0.59); #Neutrophils 2.9 thou/uL (1.40-6.50); %Eosinophils 2.9 % (0.0-10.0); %Lymphocytes 23.4 % (21.0-51.0); %Monocytes 12.8 % (0.0-10.0); Mean Platelet Volume 7.2 fL (7.4-10.4); White Blood Cell (WBC) Count 4.7 thou/uL (4.8-10.8)
[2017-04-10 21:49] LABS: ALT (SGPT) 13 U/L (8-55); AST (SGOT) 20 U/L (5-34); Alkaline Phosphatase 91 U/L (40-150); Anion Gap 11 mmol/L (10-20); BUN (Urea Nitrogen) 25 mg/dL (9.8-20.1); Bilirubin, Total 0.6 mg/dL (0.2-1.2); CK (CPK) 36 U/L (29-168); Calc. Creatinine Clearance 0 mL/min (70-130); Calcium 10.2 mg/dL (7.8-10.44); Carbon Dioxide 28 mmol/L (23-31); Chloride 103 mmol/L (98-107); Estimated GFR-MDRD 28; Globulin 2.5 g/dL (2.4-3.5); Protein, Total 6.1 g/dL (6.0-8.3)
== END 2017-04-11 00:27 ==
LOC: ERS 19:06
DX: R41.82 Altered mental status, unspecified (principal); E03.9 Hypothyroidism, unspecified; F32.9 Major depressive disorder, single episode, unspecified; F41.9 Anxiety disorder, unspecified; I48.91 Unspecified atrial fibrillation; I50.9 Heart failure, unspecified; I73.9 Peripheral vascular disease, unspecified; Z79.899 Other long term (current) drug therapy
CPT/HCPCS: 36415; 51701; 71010; 80053; 81003; 81015; 82550; 82553; 84484; 85025; 93005; A4353